=== PATIENT | male | born 1960 | race Caucasian/White ===

== ENCOUNTER 2024-05-09 20:31 | Emergency (ER) | payer BC, SELFPAY ==
--- NOTE | ~2024-05-09 | CT_ITS ---
CLINICAL HISTORY: HTN, headache CT head without contrast Comparison: None available Findings: No acute intracranial hemorrhage. No midline shift or hydrocephalus. Posterior fossa arachnoid cyst measures 5 mm. Left basal ganglia region perivascular space versus small old lacunar infarction. No arterial territorial infarction by CT. Partially empty sella. Vascular calcifications noted, including imaged carotid siphons. 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 No acute skull fracture. Mild mucosal thickening of the imaged paranasal sinuses. Imaged mastoid air cells are well aerated. No skull fracture. IMPRESSION: 1. No acute intracranial abnormality by CT. This document has been electronically signed by: Dale Atkins MD on 05/09/2024 21:39:50
[2024-05-09 20:39] VITALS: BP 189/86; PULSE 79; RESP 20; TEMP 37.2; O2SAT 96; BMI 22.8
--- NOTE | 2024-05-09 20:39 | ED_ITS ---
HPI - General Adult General Chief complaint: General Medical Stated complaint: hypertension Time Seen by Provider: 05/10/24 00:46 Source: patient Mode of arrival: ambulatory Limitations: language barrier (Bulgarian speaking clinical geneticist utilized) History of Present Illness ED Provider: Sofya Lopez NP HPI narrative: Patient is a 64-year-old male who presents to the emergency department for evaluation. He states that he routinely checks his blood pressure with an automated upper arm blood pressure cuff. He decided to check it today and was found to have elevated blood pressure reading of 196/97, this afternoon at approximately 14:00 he decided to take a 2nd dose of his lisinopril 10 mg (for a total of 20 mg today). When asked, he was asymptomatic at this time. Initial triage states that he endorsed having pain in his neck as well as a headache; however on further clarification with clinical geneticist he states that 3 days ago he experienced left lateral neck pain when he woke up in the morning resolved throughout the day, and that intermittently he might experience an occasional headache diffusely any neurological symptoms. He denies having neck pain nor headache today. He states he has been taking lisinopril 10 mg daily for about 1.5 years. He has an appointment; routine follow-up with primary care doctor in the next couple of months. He denies dizziness, lightheadedness, vision changes neck pain, neck stiffness, chest pain, shortness of breath, numbness or tingling in the extremities Related Data Allergies Allergy/AdvReac Type Severity Reaction Status Date / Time No Known Allergies Allergy Verified 05/09/24 20:41 Review of Systems 2 Review of Systems: Yes all other systems are reviewed and are negative PMFSH Past Medical History Attestation statement: The following information was validated with the patient. Source: old records reviewed Social History Social History Alcohol intake: current Alcohol intake frequency: 0-2 drinks per day Alcohol type: beer Smoked in Last 30 Days: No Use of substances other than those prescribed or required for medical reasons: No Advance Directives: No Advance Directives Information Provided: Yes Physical Exam ED Vital Signs: Vital Signs - 24 hr 05/09/24 20:39 05/09/24 23:17 05/10/24 02:40 Temperature 98.9 F 98.3 F 98.3 F Pulse Rate 79 84 67 Respiratory Rate 20 16 16 Blood Pressure 189/86 H 158/85 H 120/73 Pulse Oximetry 96 96 96 Oxygen Delivery Method Room Air Room Air Room Air 05/10/24 02:55 Temperature 98.3 F Pulse Rate 67 Respiratory Rate 16 Blood Pressure 120/73 Pulse Oximetry 96 Oxygen Delivery Method Room Air BMI result Body Mass Index 22.8 Appearance: Alert.?Oriented to person, place and time. No acute distress.?Normal affect. Eyes: Pupils equal, round and reactive to light.? ENT: Pharynx normal.?? Neck: Normal inspection.? Neck supple.?? CVS: Heart sounds normal. Normal heart rate and rhythm.? Pulses normal.?? Respiratory: No respiratory distress.? Lung sounds clear to auscultation bilaterally?? Abdomen: Soft and non-tender. Normoactive bowel sounds. ?? Skin: Skin warm and dry.? Normal skin color.? Extremities: No lower extremity edema.? No calf ttp? Neuro: Moves all extremities spontaneously. Sensation intact bilaterally. No focal neuro deficits. Ambulates with normal steady gait. Course Course Course Narrative: This is an RME: Additional HPI, ROS, PE not included below will be deferred to primary provider. RME assessment and note performed by: Shobha Turner PA-C This is a 76-memw-eqc-Bulgarian speaking male, with a hx of HTN on lisinopril, lyme disease 5 years ago, who presents to the ER with complaints of elevated BP. Reports that he has had neck pain and took his BP and noticed that it was elevated. He took two doses of his bp medication and reports that his blood pressure remains to be elevated. Reports some headache. No changes in vision, CP or SOB.Not on AC. He is A&Ox4, no focal deficits on exam. Plan: Labs, CT head, UA, EKG, further ER eval needed Medical Decision Making Medical Decision Making MDM Narrative: Patient is a 64-year-old male who presents emergency department for evaluation of asymptomatic hypertension as per HPI. On arrival to emergency department had blood pressure of 189/86. At the time of my evaluation blood pressure was 148/73, remaining asymptomatic. He had a workup obtained prior to my assumption of care revealing a CBC without leukocytosis anemia or thrombocytopenia. Electrolyte derangement. No MALLORY. LFTs unremarkable. High sensitive troponin is negative, EKG revealing a normal sinus rhythm with ventricular rate of 77, QTC 409, no acute ischemic changes. A CT of the head was obtained as well and he is without evidence of acute intracranial pathology no ICH.. Urinalysis is unremarkable, no evidence of proteinuria. Viral serologies are negative. Discussed monitoring blood pressure levels at home, appropriate time of checking heaving a log to review with his primary care doctor. Discussed strict return precautions. All questions answered. Differential Diagnosis Differential Diagnoses: The differential diagnosis associated with the presentation includes (See narrative above) Admission/Observation Consideration of admission/observation: Escalation of care including admission/observation considered Lab Data MDM Lab Attestation statement: I reviewed the patient's lab results. (See narrative above) 05/09/24 21:14 05/09/24 21:14 Labs: Lab Results 05/09/24 05/09/24 Range/Units 21:14 21:44 WBC 7.4 (4.8-10.8) X10*3/uL RBC 4.91 (4.60-5.80) X10*6/uL Hgb 15.0 (14.0-18.0) g/dl Hct 43.3 (42.0-52.0) % MCV 88.2 (80.0-98.0) fL MCH 30.5 (27.0-33.0) pg MCHC 34.6 (31.0-36.0) g/dl RDW 12.8 (11.0-16.0) % Plt Count 236 (160-400) X10*3/uL MPV 10.9 (9.4-12.4) fL Immature Gran % (Auto) 0.1 (0.0-0.4) % Neut % (Auto) 67.6 (45-73) % Lymph % (Auto) 22.6 (20-40) % [place] % (Auto) 8.9 (2-11) % Eos % (Auto) 0.4 (0-4) % Baso % (Auto) 0.4 (0-2) % Lymph # (Auto) 1.7 (1.2-4.9) X10*3/uL [place] # (Auto) 0.7 (0.1-1.2) X10*3/uL Eos # (Auto) 0.0 (0.0-0.4) X10*3/uL Baso # (Auto) 0.0 (0.0-0.2) X10*3/uL Abs Immat Gran (auto) 0.01 (0.00-0.03) X10*3/uL Absolute Neuts (auto) 5.0 (2.0-8.3) x10*3/uL Absolute Nucleated RBC 0.000 (0.0-0.012) X10*3/uL Nucleated RBC % (auto) 0.0 (0.0-0.2) /100WBC Sodium 139 (135-145) mmol/L Potassium 4.7 (3.3-5.1) mmol/L Chloride 106 (96-108) mmol/L Carbon Dioxide 25 (22-29) mmol/L Anion Gap 13 (12-20) BUN 19 H (9-16) mg/dL Creatinine 0.79 (0.5-1.4) mg/dL Estim Creat Clear Calc 94.7 Estimated GFR > 60 Random Glucose 112 (60-115) mg/dL Calcium 9.7 (8.4-10.2) mg/dL Total Bilirubin 0.3 (0.0-1.0) mg/dL Direct Bilirubin 0.1 (0.0-0.5) mg/dL AST 27 (5-37) U/L ALT 25 (0-40) U/L Alkaline Phosphatase 56 (39-117) U/L Troponin I High Sens 3.4 (<3.5-35.0) ng/L Total Protein 7.6 (6.5-8.0) g/dL Albumin 4.5 (3.5-5.0) g/dL Urine Color Yellow Urine Appearance Clear Urine pH 5.5 (5.0-9.0) Ur Specific [place] <= 1.005 (1.005-1.025) Urine Protein Negative (Neg-Trace) mg/dL Urine Glucose (UA) Negative (Negative) mg/dL Urine Ketones Negative (Negative) mg/dL Urine Blood Negative (Negative) Urine Nitrite Negative (Negative) Ur Leukocyte Esterase Negative (Negative) Influenza Type A (PCR) NEGATIVE (Negative) Influenza Type B (PCR) NEGATIVE (Negative) RSV RNA Qual (PCR) NEGATIVE (Negative) SARS-CoV-2 RNA (RT-PCR) NEGATIVE (Negative) Radiology Impression Discussion of test interpretation with radiology: I have reviewed the radiologist's reading. Radiologist Impression: CT head without contrast Comparison: None available Findings: No acute intracranial hemorrhage. No midline shift or hydrocephalus. Posterior fossa arachnoid cyst measures 5 mm. Left basal ganglia region perivascular space versus small old lacunar infarction. No arterial territorial infarction by CT. Partially empty sella. Vascular calcifications noted, including imaged carotid siphons. soft tissue swelling with question scalp defect and/or procedure change manager the left frontal convexity. No acute skull fracture. Mild mucosal thickening of the imaged paranasal sinuses. Imaged mastoid air cells are well aerated. No skull fracture. IMPRESSION: 1. No acute intracranial abnormality by CT. External Record Review External record reviewed: Outpatient record Chronic Conditions Patient?s care impacted by: Hypertension Discharge Plan Discharge Clinical Impression: Hypertension Patient Disposition: Home, Self-Care Instructions: Hypertension (ED) Additional Instructions: Discussed, please keep a log of your blood pressure readings over the next 2 weeks. Check them 3 times weekly at least 2 hours after taking your blood pressure medication, while at rest sitting in a legs on crossed position. Please write these down to keep a record of them. If you continue to have elevated blood pressure readings you should discuss this with your primary care doctor as they may consider changes to your blood pressure medication regimen. You should seek re-evaluation if you began experiencing elevated high blood pressure readings especially in addition to headache, dizziness, lightheadedness, vision changes, chest pain, shortness of breath, numbness or tingling of the extremities. Referrals: Physician,Unknown J [Primary Care Provider] - Interventions: ED Discharge Assessment Last Done: 05/10/24 02:55 Discharge Date/Time: 05/10/24 02:40 Print Language: Bulgarian
--- NOTE | 2024-05-09 20:45 | ECG_ITS ---
Test Reason : HIGH BP Blood Pressure : */* mmHG Vent. Rate : 77 BPM Atrial Rate : 77 BPM P-R Int : 130 ms QRS Dur : 92 ms QT Int : 362 ms P-R-T Axes : 61 4 50 degrees QTcB Int : 409 ms Normal sinus rhythm with sinus arrhythmia Normal ECG No previous ECGs available Referred By: Shobha Chen Electronically Signed By: DAINA DEL TORO
[2024-05-09 21:19] LABS: MANUAL DIFF FLAG NO
[2024-05-09 21:20] LABS: Basophils Percent Auto 0.4 % (0-2); Eosinophils Percent Auto 0.4 % (0-4); Hematocrit 43.3 % (42.0-52.0); Imm Gran Abs Auto 0.01 X10*3/uL (0.00-0.03); Imm Gran Pct Auto 0.1 % (0.0-0.4); Lymphocytes Absolute Auto 1.7 X10*3/uL (1.2-4.9); Lymphocytes Percent Auto 22.6 % (20-40); Mean Corpuscular HGB Conc 34.6 g/dl (31.0-36.0); Mean Corpuscular Hemoglobin 30.5 pg (27.0-33.0); Mean Corpuscular Volume 88.2 fL (80.0-98.0); Mean Platelet Volume 10.9 fL (9.4-12.4); Monocytes Absolute Auto 0.7 X10*3/uL (0.1-1.2); Monocytes Percent Auto 8.9 % (2-11); Neutrophils Percent Auto 67.6 % (45-73); Platelet Count 236 X10*3/uL (160-400); Red Blood Count 4.91 X10*6/uL (4.60-5.80); Red Cell Distribution Width 12.8 % (11.0-16.0); White Blood Count 7.4 X10*3/uL (4.8-10.8)
[2024-05-09 21:36] LABS: Alanine Aminotransferase 25 U/L (0-40); Albumin Level 4.5 g/dL (3.5-5.0); Alkaline Phosphatase 56 U/L (39-117); Anion Gap 13 (12-20); Aspartate Amino Transferase 27 U/L (5-37); Bilirubin Direct 0.1 mg/dL (0.0-0.5); Bilirubin Total 0.3 mg/dL (0.0-1.0); Blood Urea Nitrogen 19 mg/dL (9-16); Calcium 9.7 mg/dL (8.4-10.2); Carbon Dioxide 25 mmol/L (22-29); Chloride 106 mmol/L (96-108); Creatinine Clr Calc Pharmacy 94.7; Estimated Glomerular Filt Rate > 60; Glucose Random 112 mg/dL (60-115); Potassium 4.7 mmol/L (3.3-5.1); Sodium 139 mmol/L (135-145); Total Protein 7.6 g/dL (6.5-8.0)
[2024-05-09 21:42] LABS: Troponin-I High Sensitivity 3.4 ng/L (<3.5-35.0)
[2024-05-09 21:53] LABS: Appearance Urine Clear; Color Urine Yellow; Glucose Urine UA Negative (Negative); Leukocyte Esterase Urine Negative (Negative); Nitrite Urine Negative (Negative); PH 5.5 (5.0-9.0); Specific Gravity - Urine <= 1.005 (1.005-1.025); Urine Blood Negative (Negative); Urine Ketones Negative (Negative); Urine Protein Negative (Neg-Trace)
[2024-05-09 21:59] LABS: Influenza A PCR NEGATIVE (Negative); Influenza B PCR NEGATIVE (Negative); Resp Syncy Virus RNA Qual PCR NEGATIVE (Negative); SARS COV2 PCR INHOUSE NEGATIVE (Negative)
[2024-05-09 23:17] VITALS: BP 158/85; PULSE 84; RESP 16; TEMP 36.8; O2SAT 96
--- OUTSIDE RECORDS SUMMARY | 2024-05-10 00:51 | XMS_ITS | Data Portability ---
Author Organization [facility], , [facility] Address [address] [place] [address] Care Team Providers Care Barman Name Role Phone MYA KEMP Primary Care Provider Assessment Encounter Date Assessment Date Assessment LastModified by Organization Details LastModified Time 03/17/2024 03/17/2024 After a discussion of treatment options, which included consideration of best practices and patient preferences, the following treatment plan and objectives were adopted: My total time spent today documenting and providing coordinated care for this patient is _40__. I have reviewed, collected, and updated relevant history and performed a physical exam. I have coordinated care with: the patient's family. I have reviewed: labs, x-rays, specialty notes, and discharge summaries as appropriate. . Below is my assessment and plan for this patient? s care today. [email or web address] Not available 03/17/2024 11:54:44 Plan of Treatment Reminders Order Date Submit Date Provider Last Modified By Organization Details Last Modified Time Details Appointments Wellness Visit 30 2024 04:00P Marian KEMP DNP Not available Not available Not available Lab urinalys is, dipstick , auto [facility]24 [facility] [address] [place] [address], [address], 03/20/2024 13:37:48 BMP, serum or plasma 2023 024 [facility], [address] [place] [address], [address], 10/27/2023 11:41:56 PSA, serum or plasma 2023 024 [facility], [address] [place] [address], [address], 07/05/2023 11:30:12 CBC 2023 024 [facility], [address] [place] [address], [address], 07/05/2023 10:31:25 CMP, serum or plasma 2023 024 [facility], [address] [place] [address], [id number], 07/05/2023 14:14:39 lipid panel, serum 2023 024 [facility], [address] [place] [address], [address], 07/05/2023 12:57:31 HbA1c (hemoglo bin A1c), blood 2023 024 [facility], [address] [place] [address], [address], 07/05/2023 12:12:22 Referral None recorded . Procedures None recorded . Surgeries None recorded . Imaging US, kidney - intermit tent R flank pain x 5 days 2024 025 [facility]), [address], [place], [address], 03/20/2024 08:19:24 Medication Orders tramadol 50 mg tablet 2024 025 WELCH Fatemeh [id number] ([facility]), [address] [place] [address], [id number], 03/17/2024 10:28:24 lisinopr il 10 mg tablet 2023 024 WELCH Fatemeh [address] ([facility]), [address] [place] [address], [id number], 08/31/2023 14:47:46 albutero l sulfate HFA 90 mcg/actu ation aerosol inhaler 2023 024 KETTY Weldon [id number] ([facility]), [address], [place], [id number], 09/27/2023 14:48:01 Patient TargetsNo targets recorded. Patient Instructions Encounter Date Encounter Id Patient Instructions Last Modified By Organization Details Last Modified Time 03/10/2023 [id number] After a discussi on of treatment options, which included consideration of best practices, patient preferences, and the patient? s individual lifestyle and treatment goals, as well as consideration and attempted mitigation of any barriers to meeting the patient? s goals, the? ? ?above treatment plan and objectives were adopted: [email or web address] Not available 03/10/2023 08:40:27 Reason for Referral None Reported. Results Created Date Observation Date Name Description Value Unit Range Abnormal Flag Note LastModifiedBy Organization Detail LastModifiedTime 07/05/19 24 07/05/2023 CBC WBC 4.00 K/? ? ?L 4.23-9 .07 low Not Available [address], [address], 07/05/2023 10:31:25 07/05/19 24 07/05/2023 CBC RBC 4.72 M/? ? ?L 4.63-6 .08 Not Available [address], [address], 07/05/2023 10:31:25 07/05/19 24 07/05/2023 CBC HGB 14.4 g/dL 13.7-1 7.5 Not Available [address], [address], 07/05/2023 10:31:25 07/05/19 24 07/05/2023 CBC HCT 45.1 % 40.1-5 1.0 Not Available [address], [address], 07/05/2023 10:31:25 07/05/19 24 07/05/2023 CBC MCV 95.6 fL 79.0-9 2.2 high Not Available [address], [address], 07/05/2023 10:31:25 07/05/19 24 07/05/2023 CBC MCH 30.5 pg 25.7-3 2.2 Not Available [address], [address], 07/05/2023 10:31:25 07/05/19 24 07/05/2023 CBC MCHC 31.9 g/dL 32.3-3 6.5 low Not Available [address], [address], 07/05/2023 10:31:25 07/05/19 24 07/05/2023 CBC plt 224 K/? ? ?L 163-33 7 Not Available [address], [address], 07/05/2023 10:31:25 07/05/19 24 07/05/2023 CBC MPV 11.3 fL 9.4-12 .4 Not Available [address], [address], 07/05/2023 10:31:25 07/05/19 24 07/05/2023 CBC neut% 43.6 % 34.0-6 7.9 Not Available [address], [address], 07/05/2023 10:31:25 07/05/19 24 07/05/2023 CBC neut# 1.75 1.78-5 .38 low Not Available [address], [address], 07/05/2023 10:31:25 07/05/19 24 07/05/2023 CBC lymph % 38.3 % 21.8-5 3.1 Not Available [address], [address], 07/05/2023 10:31:25 07/05/19 24 07/05/2023 CBC lymph # 1.53 K/? ? ?L 1.32-3 .57 Not Available [address], [address], 07/05/2023 10:31:25 07/05/19 24 07/05/2023 CBC mono% 15.0 % 5.3-12 .2 high Not Available [address], [address], 07/05/2023 10:31:25 07/05/19 24 07/05/2023 CBC mono# 0.60 0.30-0 .82 Not Available [address], [address], 07/05/2023 10:31:25 07/05/19 24 07/05/2023 CBC eo% 2.0 % 0.8-7. 0 Not Available [address], [address], 07/05/2023 10:31:25 07/05/19 24 07/05/2023 CBC eo# 0.08 0.04-0 .54 Not Available [address], [address], 07/05/2023 10:31:25 07/05/19 24 07/05/2023 CBC baso% 0.8 % 0.2-1. 2 Not Available [address], [address], 07/05/2023 10:31:25 07/05/19 24 07/05/2023 CBC baso# 0.03 0.00-0 .08 Not Available [address], [address], 07/05/2023 10:31:25 07/05/19 24 07/05/2023 CBC RDW-CV 13.0 % 11.6-1 4.4 Not Available [address], [address], 07/05/2023 10:31:25 07/05/19 24 07/05/2023 CBC Ig% 0.300 % 0.000- 1.500 Ig % >0.5 Indic ates possi ble Left Shift Not Available [address], [address], 07/05/2023 10:31:25 07/05/19 24 07/05/2023 CBC Ig# 0.010 0.000- 0.093 Not Available [address], [address], 07/05/2023 10:31:25 07/05/19 24 07/05/2023 CBC NRBC% 0.0 % 0.0-0. 2 Not Available [address], [address], 07/05/2023 10:31:25 07/05/19 24 07/05/2023 CBC NRBC# 0.000 0.000- 0.012 Not Available [address], [address], 07/05/2023 10:31:25 07/05/19 24 07/05/2023 PSA PSA 0.71 NG/mL 0.00-4 .00 Not Available [address], [address], 07/05/2023 11:30:12 07/05/1907/05/2023 HGB A1C hemoglobin A1C 5.7 % 4.8-6. 0 Goal: <7% in Patie nts with Diabe reno An A1c betwe en 5.7-6 .4% is ident ified as pre-d iabet es and sugge sts risk for progr essio n to diabe reno Two a1c value s of 6.5% or highe r is consi stent with a diagn osis of diabe reno but may need furth er confi rmati on Not Available [address], [address], 07/05/2023 12:12:21 05/28/07/05/2023 HGB A1C estimated average glucose 116.9 mg/dL Not Available [address], [address], 07/05/2023 12:12:21 07/05/1907/05/2023 LIPID PANEL cholesterol 161 mg/dL <200 mg/dl Mateo able 200-2 39 mg/dl Borde rline High >240 mg/dl High Not Available [address], [address], 07/05/2023 12:57:31 07/05/19 24 07/05/2023 LIPID PANEL triglyceride s 69 mg/dL <150 mg/dL Mary Beth l 150-1 99 mg/dL Borde rline High 200-4 99 mg/dL High >500 mg/dL Very High Not Available [address], [address], 07/05/2023 12:57:31 07/05/19 24 07/05/2023 LIPID PANEL direct HDL 54 mg/dL <40 mg/dl - Major Risk for CHD >60 mg/dl - Negat shadia Risk for CHD Not Available [address], [address], 07/05/2023 12:57:31 07/05/19 24 07/05/2023 LDL - CALCU LATED LDL - calculated 93.2 RISK CATEG ORY LDL GOAL _ CHD or CHD Risk Equiv alent s <100 mg/dl (10-y ear risk >20%) 2+ Risk Facto rs <130 mg/dl (10-y ear risk <= 20%) 0-1 Risk Facto r? <160 mg/dl ? Almos t all peopl e with 0-1 risk facto r have a 10 year risk <10%, thus 10 year risk asses ment in peopl e with 0-1 risk facto r is not neces greyson. Not Available [address], [address], 07/05/2023 12:57:32 07/05/19 24 07/05/2023 COMP. METAB OLIC PANEL glucose 112 mg/dL 70-100 high Not Available [address], [address], 07/05/2023 14:14:39 07/05/19 24 07/05/2023 COMP. METAB OLIC PANEL BUN 17 mg/dL 7-18 Not Available [address], [address], 07/05/2023 14:14:39 07/05/19 24 07/05/2023 COMP. METAB OLIC PANEL creatinine 0.8 mg/dL 0.8-1. 3 Not Available [address], [address], 07/05/2023 14:14:39 07/05/19 24 07/05/2023 COMP. METAB OLIC PANEL B/C 21.3 ratio Not Available [address], [address], 07/05/2023 14:14:39 07/05/19 24 07/05/2023 COMP. METAB OLIC PANEL GFR >=60ML /MIN mL/mi n normal >=60m L/min - Mary Beth l or midly reduc ed <60mL /min- Decre ased kidne y funct ion <15mL /min - Kidne y failu re [facility] calcu lates estim ated Glome rular Filtr ation Rate (eGFR ) using the Chron ic Kidne y Disea se Epide miolo gy Colla borat ion (CKD- EPI) Equat ion (Oscar chambers et. al 2020) as recom huang d by the Natio nal Kidne y Found ation . eGFR is based on age, serum creat inine , and sex. CKD-E PI does not calcu late eGFR by race, does not apply to child karthikeyan (age <18 years ), and shoul d not be used in pregn kim. Not Available [address], [address], 07/05/2023 14:14:39 07/05/19 24 07/05/2023 COMP. METAB OLIC PANEL sodium 140 mmol/ L 136-14 5 Not Available [address], [address], 07/05/2023 14:14:39 07/05/19 24 07/05/2023 COMP. METAB OLIC PANEL potassium 5.3 mmol/ L 3.5-5. 1 high Not Available [address], [address], 07/05/2023 14:14:39 07/05/19 24 07/05/2023 COMP. METAB OLIC PANEL chloride 104 mmol/ L 96-107 Not Available [address], [address], 07/05/2023 14:14:39 07/05/19 24 07/05/2023 COMP. METAB OLIC PANEL anion gap 8.3 5.0-15 .0 Not Available [address], [address], 07/05/2023 14:14:39 07/05/19 24 07/05/2023 COMP. METAB OLIC PANEL CO2 28 mmol/ L 21-32 Not Available [address], [address], 07/05/2023 14:14:39 07/05/19 24 07/05/2023 COMP. METAB OLIC PANEL calcium 8.8 mg/dL 8.5-10 .3 Not Available [address], [address], 07/05/2023 14:14:39 07/05/19 24 07/05/2023 COMP. METAB OLIC PANEL total protein 6.7 g/dL 6.4-8. 2 Not Available [address], [address], 07/05/2023 14:14:39 07/05/19 24 07/05/2023 COMP. METAB OLIC PANEL albumin 3.7 g/dL 3.4-5. 0 Not Available [address], [address], 07/05/2023 14:14:39 07/05/19 24 07/05/2023 COMP. METAB OLIC PANEL globulin 3.0 g/dL Not Available [address], [address], 07/05/2023 14:14:39 07/05/19 24 07/05/2023 COMP. METAB OLIC PANEL A/G 1.2 ratio 0.8-2. 0 Not Available [address], [address], 07/05/2023 14:14:39 07/05/19 24 07/05/2023 COMP. METAB OLIC PANEL total bilirubin 0.30 mg/dL 0.00-1 .00 Not Available [address], [address], 07/05/2023 14:14:39 07/05/19 24 07/05/2023 COMP. METAB OLIC PANEL AST 18 U/L 0-37 Not Available [address], [address], 07/05/2023 14:14:39 07/05/19 24 07/05/2023 COMP. METAB OLIC PANEL ALT 35 U/L 6-63 Not Available [address], [address], 07/05/2023 14:14:39 07/05/19 24 07/05/2023 COMP. METAB OLIC PANEL alk. phos. 54 U/L 50-136 Not Available [address], [address], 07/05/2023 14:14:39 10/27/19 24 10/27/2023 BASIC METAB OLIC PANEL glucose 100 mg/dL 70-100 Not Available [address], [address], 10/27/2023 11:41:56 10/27/19 24 10/27/2023 BASIC METAB OLIC PANEL BUN 18 mg/dL 7-18 Not Available [address], [address], 10/27/2023 11:41:56 10/27/19 24 10/27/2023 BASIC METAB OLIC PANEL creatinine 0.9 mg/dL 0.8-1. 3 Not Available [address], [address], 10/27/2023 11:41:56 10/27/19 24 10/27/2023 BASIC METAB OLIC PANEL B/C 20.0 ratio Not Available [address], [address], 10/27/2023 11:41:56 10/27/19 24 10/27/2023 BASIC METAB OLIC PANEL GFR >=60ML /MIN mL/mi n normal >=60m L/min - Mary Beth l or midly reduc ed <60mL /min- Decre ased kidne y funct ion <15mL /min - Kidne y failu re [facility] calcu lates estim ated Glome rular Filtr ation Rate (eGFR ) using the Chron ic Kidne y Disea se Epide miolo gy Colla borat ion (CKD- EPI) Equat ion (Oscar r et. al 2020) as recom huang d by the Natio nal Kidne y Found ation . eGFR is based on age, serum creat inine , and sex. CKD-E PI does not calcu late eGFR by race, does not apply to child karthikeyan (age <18 years ), and shoul d not be used in pregn kim. Not Available [address], [address], 10/27/2023 11:41:56 10/27/19 24 10/27/2023 BASIC METAB OLIC PANEL sodium 139 mmol/ L 136-14 5 Not Available [address], [address], 10/27/2023 11:41:56 10/27/19 24 10/27/2023 BASIC METAB OLIC PANEL potassium 4.4 mmol/ L 3.5-5. 1 Not Available [address], [address], 10/27/2023 11:41:56 10/27/19 24 10/27/2023 BASIC METAB OLIC PANEL chloride 101 mmol/ L 96-107 Not Available [address], [address], 10/27/2023 11:41:56 10/27/19 24 10/27/2023 BASIC METAB OLIC PANEL anion gap 10.1 5.0-15 .0 Not Available [address], [address], 10/27/2023 11:41:56 10/27/19 24 10/27/2023 BASIC METAB OLIC PANEL CO2 28 mmol/ L 21-32 Not Available [address], [address], 10/27/2023 11:41:56 10/27/19 24 10/27/2023 BASIC METAB OLIC PANEL calcium 8.8 mg/dL 8.5-10 .3 Not Available [address], [address], 10/27/2023 11:41:56 03/17/19 25 03/19/2024 URINA LYSIS , COMPL ETE color YELLOW yellow normal Not Available [facility] [address], [address], 03/19/2024 10:27:21 03/17/19 25 03/19/2024 URINA LYSIS , COMPL ETE appearance CLEAR clear normal Not Available [facility] [address], [address], 03/19/2024 10:27:21 03/17/19 25 03/19/2024 URINA LYSIS , COMPL ETE specific gravity 1.020 1.001- 1.035 normal Not Available [facility] [address], [place], [address], 03/19/2024 10:27:21 03/17/19 25 03/19/2024 URINA LYSIS , COMPL ETE pH 5.5 5.0-8. 0 normal Not Available [facility] [address], [place], [address], 03/19/2024 10:27:21 03/17/19 25 03/19/2024 URINA LYSIS , COMPL ETE glucose NEGATI VE negati ve normal Not Available [facility] [address], [place], [address], 03/19/2024 10:27:21 03/17/19 25 03/19/2024 URINA LYSIS , COMPL ETE bilirubin NEGATI VE negati ve normal Not Available [facility] [address], [place], [address], 03/19/2024 10:27:21 03/17/19 25 03/19/2024 URINA LYSIS , COMPL ETE ketones NEGATI VE negati ve normal Not Available [facility] [address], [place], [address], 03/19/2024 10:27:21 03/17/19 25 03/19/2024 URINA LYSIS , COMPL ETE occult blood NEGATI VE negati ve normal Not Available [facility] [address], [place], [address], 03/19/2024 10:27:21 03/17/19 25 03/19/2024 URINA LYSIS , COMPL ETE protein NEGATI VE negati ve normal Not Available [facility] [address], [place], [address], 03/19/2024 10:27:21 03/17/19 25 03/19/2024 URINA LYSIS , COMPL ETE nitrite NEGATI VE negati ve normal Not Available [facility] [address], [place], [address], 03/19/2024 10:27:21 03/17/19 25 03/19/2024 URINA LYSIS , COMPL ETE leukocyte esterase NEGATI VE negati ve normal Not Available [facility] [address], [place], [address], 03/19/2024 10:27:21 03/17/19 25 03/19/2024 URINA LYSIS , COMPL ETE WBC NONE SEEN /hpf < or = 5 normal Not Available [facility] [address], [place], [address], 03/19/2024 10:27:21 03/17/19 25 03/19/2024 URINA LYSIS , COMPL ETE RBC NONE SEEN /hpf < or = 2 normal Not Available [facility] [address], [place], [address], 03/19/2024 10:27:21 03/17/19 25 03/19/2024 URINA LYSIS , COMPL ETE squamous epithelial cells NONE SEEN /hpf < or = 5 normal Not Available [facility] [address], [place], [address], 03/19/2024 10:27:21 03/17/19 25 03/19/2024 URINA LYSIS , COMPL ETE bacteria NONE SEEN /hpf none seen normal Not Available [facility] [address] [place], [address], 03/19/2024 10:27:21 03/17/19 25 03/19/2024 URINA LYSIS , COMPL ETE calcium oxalate crystals FEW /hpf none or few normal Not Available [facility] [address], [place], [address], 03/19/2024 10:27:21 03/17/19 25 03/19/2024 URINA LYSIS , COMPL ETE uric acid crystals FEW /hpf none or few normal Not Available [facility] [address], [place], [address], 03/19/2024 10:27:21 03/17/19 25 03/19/2024 URINA LYSIS , COMPL ETE hyaline cast NONE SEEN /lpf none seen normal Not Available [facility] [address], [place], [address], 03/19/2024 10:27:21 03/17/19 25 03/19/2024 URINA LYSIS , COMPL ETE Unknown Analyte SEE BELOW This urine was karina zed for the prese nce of WBC, RBC, bacte gaston, casts , and other forme d eleme nts. Only those eleme nts seen were repor vicente. Not Available [facility] [address], [place], [address], 03/19/2024 10:27:21 03/20/19 25 03/19/2024 US, kidne y CLINIC AL HISTOR Y: Right flank pain. Transi ent left flank pain. TECHNI QUE: 2D sonogr aphy of the kidney s. COMPAR BENNETT: None. FINDIN GS: Right kidney 4.6 x 10.1 cm The right kidney is normal in echote xture. There is no solid mass, stone, or hydron ephros is. Left kidney 5.6 x 10.6 cm The left kidney is normal in echote xture. There is no solid mass, stone, or hydron ephros is. Ureter al jets are visual ized bilate rally. IMPRES ROSARIO: Normal examin ation. Readin g Physic howard: Loyda Watts ms [email or web address] [facility] [address] , [place], [address], 03/27/2024 15:48:49 Result Notes None recorded. Problems Name Problem SNOMED Code Status Onset Date Resolution Date Notes Provider Name and Address Organization Details Recorded Time Hyperlipidemia 40451091 Active 2023 Joceline Lizarraga PA-C [address] [place] [address], [phone], [facility] 4 14:26:06 Elevated blood-pressure reading without diagnosis of hypertension 884764034 Active 2023 Joceline Lizarraga PA-C [address] [place] [address] [place], [address], [facility] 4 14:26:07 Essential hypertension 30609532 Active 2023 Joceline Lizarraga PA-C [address] [place] [address] [place], [address], [facility] 4 14:56:18 Problem Notes None recorded. Procedures Surgical History Date Name Laterality Status Provider Name and Address Organization Details Recorded Time 2 Jonathan - Colonoscopy completed Patricio Castillo MD [address] [place] [address], [phone], [facility] 09/03/2021 11:04:04 2 Colonoscopy completed Alana Ochoa [facility] 11/04/2021 12:54:42 0 prevention-card iovascular risk reduction counseling completed Crystal Herrera MA [facility] 03/28/2019 14:12:58 0 prevention-otoniel al alcohol misuse screening completed Crystal Herrera MA [facility] 03/28/2019 14:12:58 6 Jonathan - Colonoscopy completed Patricio Castillo MD [address] [place] [address], [phone], [facility] 11/17/2015 07:46:30 Nerve surgery completed CARI Crespo [address] [facility], [place], [address], [facility] 08/27/2015 20:48:52 Imaging Results Imaging Date Name Status LastModified by Organiz ation Details LastModified Time 03/19/2024 US, kidney completed [email or web address] [facility] [address], [place], [address], 03/27/2024 15:48:49 Procedure Notes None recorded. Medical Equipment None Reported. Allergies No known drug allergies Medications Name Sig Start Date Stop Date Status Note LastModified by Organization Details LastModified Time ibuprofen 800 mg tablet Take 1 tablet 3 times a day by oral route with meals. 11/30 completed Not Available Not Available Not Available tramadol 50 mg tablet TAKE 1 TABLET BY MOUTH EVERY 6 HOURS NEEDED FOR PAIN active Not Available Not Available No t Available lisinopri l 10 mg tablet TAKE 1 TABLET BY MOUTH EVERY DAY 2024 active Not Available Not Available Not Avai lable naproxen 500 mg tablet,de layed release TAKE 1 TABLET BY MOUTH TWICE A DAY WITH MEALS 03/28 completed Not Available Not Available Not Available diclofena c sodium 75 mg tablet,de layed release TK 1 T PO BID 11/30 completed Not Available Not Available Not Available albuterol sulfate HFA 90 mcg/actua tion aerosol inhaler INHALE 2 PUFFS BY MOUTH EVERY 4 HOURS NEEDED 09/26 completed stated not using anymore 08/31/23 Not Available Not Available Not Available doxycycli ne hyclate 100 mg tablet Take 1 tablet twice a day by oral route for 21 days. 04/21 completed Not Available Not Available Not Available peg 3350-elec trolytes 236 gram-22.7 4 gram-6.74 gram-5.86 gram solution MIX AND DRINK DIRECTED 04/12 completed Not Available Not Available Not Available ProChambe r USE WITH INHALER DIRECTED 09/26 completed stated not using anymore 08/31/23 ao Not Available Not Available Not Available Vitals Date Recorded Body height Body mass index (BMI) Body weight Oxygen saturation Oxygen saturation in Arterial blood by Pulse oximetry Heart rate Systolic blood pressure Diastolic blood pressure Provider Name and Address Organization Details Last Updated DateTime 4 175.26 cm 23.7 kg/m2 74344.8 8 g 95 % 95 % 66 /min 124 mm[Hg] 72 mm[Hg] Jose Antonio Bonilla MA [facility] 4 08:13:50 Date Recorded Body height Body mass index (BMI) Body weight Heart rate Oxygen saturation Oxygen saturation in Arterial blood by Pulse oximetry Systolic blood pressure Diastolic blood pressure Systolic blood pressure Diastolic blood pressure Provider Name and Address Organization Details Last Updated DateTime 4 175.26 cm 23.6 kg/m2 80587.7 8 g 65 /min 95 % 95 % 162 mm[Hg] 80 mm[Hg] 162 mm[Hg] 78 mm[Hg] Mara Amanda [facility] 4 14:03:04 Date Recorded Body height Body mass index (BMI) Body weight Oxygen saturation Oxygen saturation in Arterial blood by Pulse oximetry Heart rate Systolic blood pressure Diastolic blood pressure Provider Name and Address Organization Details Last Updated DateTime 4 175.26 cm 23.2 kg/m2 55346.7 g 95 % 95 % 65 /min 166 mm[Hg] 88 mm[Hg] Jacquelin Bee [facility] 4 14:36:09 Date Recorded Body height Body mass index (BMI) Body weight Oxygen saturation Oxygen saturation in Arterial blood by Pulse oximetry Heart rate Systolic blood pressure Diastolic blood pressure Systolic blood pressure Diastolic blood pressure Provider Name and Address Organization Details Last Updated DateTime 4 175.26 cm 23 kg/m2 93028.4 1 g 98 % 98 % 66 /min 128 mm[Hg] 56 mm[Hg] 148 mm[Hg] 83 mm[Hg] Marsi Lemon [facility] 4 14:45:23 Date Recorded Body height Heart rate Body temperature Systolic blood pressure Diastolic blood pressure Provider Name and Address Organization Details Last Updated DateTime 03/17/2024 175.26 cm 72 /min 98.7 [degF] 148 mm[Hg] 78 mm[Hg] Alma Sharif [facility] 5 10:00:00 Social History Question Answer Notes LastModified by Organizat ion Details LastModified Time Tobacco Smoking Status Former Smoker [facility] 10 years [facility] 15:47:50 What Is Your Level Of Alcohol Consumption? Heavy 1-3 Beers Per Day [email or web address] Information not available 04/12/2022 Do You Wear A Helmet When Biking? Yes Information not available 08/27/2015 What Is Your Level Of Caffeine Consumption? Moderate 1/day Information not available 08/27/2015 How Much Tobacco Do You Chew? None Information not available 08/27/2015 Are You Currently Employed? Yes Information not available 04/06/2021 What Type Of Diet Are You Following? REGULAR Information not available 08/27/2015 Which Illicit Or Recreational Drugs Have You Used? No [email or web address] Information not available 08/10/2018 Do You Or Have You Ever Used E-cigarettes Or Vape? Never Used Electronic Cigarettes [email or web address] Information not available 03/28/2019 Education 12 Information no t available 08/27/2015 What Is The Highest Grade Or Level Of School You Have Completed Or The Highest Degree You Have Received? 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 No Information not available 04/06/2021 When Did You Quit Smoking? 16+yearssincel astcigarette 1 Ppd For 20 Yrs Information not available 08/27/2015 How Many Days In The Past Year Have You Had A Heavy Drinking Consumption (4+ Female, 5+ Male)? 0 [email or web address] Information not available 03/28/2019 Are There Any Guns Present In Your Home? No [email or web address] Information not available 03/28/2019 Do You Use Insect Repellent Routinely? No Information not available 04/06/2021 Live Alone Or With Others? With Others Information not available 08/27/2015 Marital Status Informatio n not available 08/27/2015 Mosquito Repellent Used Routinely Yes Information not available 08/27/2015 What Was The Date Of Your Most Recent Tobacco Screening? 03/17/2024 Information not available 03/17/2024 How Many Children Do You Have? 0 1 Step Kid Information not available 04/06/2021 What Is Your Current Pack Years? 10packyears [email or web address] Information not available 04/12/2022 What Is Your Relationship Status? Information not available 04/06/2021 Do You Use Your Seat Belt Or Car Seat Routinely? Yes Information not available 04/06/2021 Seat Belts Used Routinely Yes Information not available 08/27/2015 Smoke Alarm In Home Yes Information not available 08/27/2015 Do You Have Smoke And Carbon Monoxide Detectors In Your Home? Yes Information not available 04/06/2021 At What Age Did You Start Smoking Tobacco? 25 Information not available 04/06/2021 Are You Passively Exposed To Smoke? No Information not available 04/06/2021 Do You Or Have You Ever Used Smokeless Tobacco? Never Used Smokeless Tobacco [email or web address] Information not available 03/28/2019 General Stress Level Medium Information not available 08/27/2015 Do You Use Any Illicit Or Recreational Drugs? No Information not available 04/06/2021 Do You Use Sunscreen Routinely? No If Needed, But Rare [email or web address] Information not available 06/27/2023 How Many Years Have You Smoked Tobacco? 25 Information not available 04/06/2021 Do You Or Have You Ever Used Any Other Forms Of Tobacco Or Nicotine? No Information not available 04/06/2021 How Many Days In The Past Year Have You Consumed 5 Or More Drinks? 12 [email or web address] Information not available 04/12/2022 Sex: Male Functional Status Question Answer Note LastModified by Organizat ion Details LastModified Time What is your exercise level? Moderate active job, walking Information not available 04/06/2021 Mental Status None recorded. Family History Relationship Description Onset Age of this Age Resolved Age Notes LastModified by Organization Details LastModified Time Father Malignant tumor of colon [email or web address] Not available 2015 15:38:07 Brother Malignant tumor of prostate [email or web address] Not available 2023 14:22:21 Medical History Condition Response NEUROLOGIC Y Past Encounters Encounter ID Performer Location Encounter Start Date Encounter Closed Date Diagnosis/Indication Diagnosis SNOMED-CT Code Diagnosis ICD10 Code Diagnosis Note [id number] CARI Crespo , [facility], [address] [place] [address] 08/27/2015 15:10:42 08/27/2015 16:36:38 Adult health examination 487096931 Z00.00 see Risk Assessment and Lifestyle Change Counseling section above Counseling 076341494 Z71 .9 Screening for malignant neoplasm of colon 838452513 Z12.11 Referral for a DIRECT booked colonoscop y. This patient is a healthy ASA Class 1 or 2 patient (only mild systemic disease), or a STABLE, well controlled insulin dependent diabetic. They do not have serious cardiac disease ie MS/angiopl asty within 1 year, symptomati c CHF; renal failure with CKD 4 or 5; take Coumadin, Plavix, Aggrenox, etc. Rectal hemorrhage 499018 02 K62.5 [id number] Patricio Castillo MD [facility], [address] [address] 11/17/2015 06:40:22 11/17/2015 13:33:17 [id number] Nilesh Sauceda MD , [facility], [address] [place] [address] 07/16/2016 16:19:07 07/19/2016 12:57:16 Sciatica 03941492 M54.31 will have work with pt Tick bite 41872554 S00.9 6XA reassured discussed goal of getting ticks off in 24 hour [id number] Blanche Taylor NP , [facility], [address] [place] [address] 02/24/2017 15:38:45 02/25/2017 08:08:45 Screening for disorder 647848537 Z11.59 Pain in left knee 474580 8873 46765 M25.562 xray unremarkab le. Check labs in AM (lab is closed) Ibuprofen tid with food -advised re need for antiinflam matory, rest. 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 will finish 4 weeks of treatment and f/u [id number] Nilesh Sauceda MD , [facility], [address] [place] [address] 04/21/2017 16:15:05 04/21/2017 16:49:57 Lyme arthritis 39381788 A69.23 has finished course and seems better will observe and f/u for pe [id number] Nilesh Sauceda MD , [facility], [address] [place] [address] 11/30/2017 15:45:00 12/27/2017 16:05:53 Adult health examination 562738649 Z00.00 see Risk Assessment and Lifestyle Change Counseling section above Counseling 235119486 Z71 .9 Depression screening 171 303988 Z13.89 depression screening tool administer ed, entered into emr, scored and discussed, time greater than 7.5 minutes [id number] Maryuri Perry MD , [facility], [address] [place] [address] 07/08/2018 14:33:34 07/08/2018 15:00:04 Injury of hand 115489125 S69.92XA bruising injury in left hand which is contracted at baseline and without sensationd o not see any fractures on my read of imagingrea ssuranceex pect bruising to resolve in a few weeksno need for other tx, not painfulf/u radiology read [id number] Maryuri Perry MD , [facility], [address] [place] [address] 08/10/2018 09:08:30 08/10/2018 09:31:45 Pain of right shoulder joint [id number] 8107060 M25.511 shoulder strain with a lot of labor and use latelygett ing worse in past few daysnight painstregn th and ROM intactinst r home exercises to startrestn saidssched ule PTf/u as needed [id number] Nilesh Sauceda MD , [facility], [address] [place] [address] 03/28/2019 15:40:10 03/28/2019 16:42:21 Adult health examination 091826421 Z00.00 see Risk Assessment and Lifestyle Change Counseling section above - enc. to schedule an eye exam, due for colonoscop y next year. Encouraged to continue healthy habits and follow-up annually, sooner as needed. Counseling 488604002 Z71 .9 including cardiovasc ular risk reduction counseling Depression screening 171 926913 Z13.89 depression screening tool administer ed, entered into emr, scored and discussed, time greater than 7.5 minutes Screening for alcohol abuse 504087296 Z13.39 Discussed negative effects on body and sleep. Enc. trying to going 10-14 days w/o alcohol. Impaired f asting glycemia 247732130 R73.01 Elevated in the past, will order fasting labs. Sleep cuate georgie disturbance 84492027 G47.9 Reviewed sleep hygiene and how lack of sleep can negatively effect the body Shoulder pain 82035037 M 25.519 C/o right shoulder pain. 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 They will go to [facility] at [facility] for drive-thro ugh PCR test. Aware that results can take up to 48 hrs and they will have to quarantine until then. Acute uppe r respiratory infection 48879191 J06.9 Drink plenty of fluids, such as water, diluted juice, decaffeina vicente tea, or clear broth. Avoid dairy products if they cause you congestion . Use a nasal rinse, such as Netti Pot. Keep room humidified and take warm showers for the steam. Over the counter products for congestion and cough are OK, but will only provide partial relief. If you have high blood pressure, check with your pharmacist for safe alternativ es. Remember that cold symptoms can last as long as 2-3 weeks: stuffiness , cough and sore throat. Mucinex (generic name is guaifenesi n) can help thin mucus and make the cough easier to break up. Please call if your symptoms worsen considerab ly in 3 days, or you have a high fever.REvi ewed red flags, chalino s/t SOB, and when to seek UC/ED. [id number] Ellie Zafar MA , [facility], [address] [place] [address] 04/06/2021 15:33:28 04/09/2021 14:22:03 Adult health examination 791741178 Z00.00 Wellness exam: -Colonosco py 11/17/2015 repeat 5 years (family h/o colon CA); will send referral for repeat-Dec lines COVID and flu vaccines; counseled regarding covid vaccinatio n.-Labs after visit today. Counseling 842315359 Z71 .9 including cardiovasc ular risk reduction counseling Depression screening 171 369360 Z13.31 depression screening tool administer ed, entered into emr, scored and discussed, time greater than 7.5 minutes Screening for alcohol abuse 123345610 Z13.39 Screening for malignant neoplasm of colon 782229399 Z12.11 Referral for a DIRECT booked colonoscop y. This patient is a healthy ASA Class 1 or 2 patient (only mild systemic disease), or a STABLE, well controlled insulin dependent diabetic. They do not have serious cardiac disease ie MS/angiopl asty within 1 year, symptomati c CHF; renal failure with CKD 4 or 5; take Coumadin, Plavix, Aggrenox, etc. [id number] Daniel Carr RN [facility], [facility] [address] [place] [address] 09/03/2021 09:19:12 09/03/2021 12:46:57 [id number] Joceline Lizarraga PA-C , [facility], [address] [place] [address] 04/12/2022 15:35:58 04/14/2022 11:19:04 Adult health examination 847969083 Z00.00 Wellness exam: -Colonosco py 09/03/21: pathology: adenomatou s polyp11/16 repeat 5 years (family h/o colon CA)-Vaccin es reviewed-L abs after visit today please. -Pt and ask about possible supplement al disability qualificat ion with remote left arm injury, his hand is contracted and has very limited use with his arm. Ellie has placed a pt case to social work to help with resources to help pt navigate this. Depression screening 171 Z13.31 depression screening tool administer ed Screening for alcohol abuse 144589988 Z13.39 Alcohol use screening tool administer ed. Drinks at least 3 servings per day and discussed reducing to no more than 1-2 per day. Vaccination not done 002 7672851 9108 Z28.29 Patient declined the vaccine at this time. [id number] Sheridan Stone DO , [facility], [address] [place] [address] 03/10/2023 07:36:24 03/10/2023 08:36:41 Vaccination delayed [id number] 35414 Z28.39 flu & Td Cough 27644083 R05.9 Patient presents with cough.Like ly secondary to: Viral URI triggering bronchospa smDiscusse d supportive measures. Instructed in how to use albuterol MDI with aerochambe rFollow up if not improving or with worsening symptoms. Dyspnea 494678326 R06.00 Lungs clear on exam but ? some bronchospa sm when he is having these sx cough/SOB at home. Will try albuterol with aerochambe r as above [id number] Joceline Lizarraga PA-C , [facility], [address] [place] [address] 06/27/2023 13:33:46 06/27/2023 14:19:29 Adult health examination 565486725 Z00.00 Wellness exam: -Colonosco py 09/03/21: pathology: adenomatou s polyp; has family h/o colon CA with father.-La bs and vaccines reviewed.- We discussed cutting down daily ETOH. Depression screening 171 Z13.31 depression screening tool administer ed Screening for alcohol abuse 490764118 Z13.39 Alcohol use screening tool administer ed Screening for malignant neoplasm of prostate 719910757 Z12.5 Pt wishes to have PSA checked; brother with prostate CA. Vaccination not done 476 0760508 9108 Z28.29 Patient declined the td vaccine at this time. 06/27/23 am Hyperlipidemia 48342977 E78.5 Lipids 04/2022: LDL 153/HDL49/ Tri 175 04/14/22; recheck labs fasting please in next 1-2 weeks. Elevated blood-pressure reading without diagnosis of hypertension 001296202 R03.0 BP elevated times 2 today.Disc ussed reducing ETOH.He does snore, but they do not want to pursue sleep study currently. We discussed the cardiovasc ular risks associated with untreated htn.They will obtain a home cuff and RTO in 2 months please for BP check. [id number] TASIA Perez, [facility], [address] [place] [address] 08/31/2023 14:12:09 08/31/2023 14:51:14 Hyperlipidemia 29808866 E78.5 Repeat lipids 07/05/23: LDL 93/HDL54/T ri 69Lipids 04/2022: LDL 153/HDL49/ Tri 175 04/14/22 Elevated blood-pressure reading without diagnosis of hypertension 936947700 R03.0 BP elevated times 2 today.Disc ussed reducing ETOH.He does snore, but they do not want to pursue sleep study currently. We discussed the cardiovasc ular risks associated with untreated htn.They will obtain a home cuff and RTO in 2 months please for BP check. Essential hypertension 04321676 I10 Discussed reducing ETOH.He does snore, but they do not want to pursue sleep study currently. We discussed the cardiovasc ular risks associated with untreated htn.Home BP readings brought in today are elevated.S tart lisinopri 10 mg QD and f/u in 1 month please. [id number] TASIA Perez, [facility], [address] [place] [address] 09/27/2023 14:32:52 09/28/2023 15:33:30 Essential hypertension 58664586 I10 IMPROVED:D iscussed reducing ETOH.He does snore, but has not wanted to pursue sleep study.Cont inue on Lisinopril 10 mg QD started 1 month ago.Labs 07/05/2023 reviewed; K+ was 5.3 at that time; repeat BMP in 1 month please.F/u in 6 months. Pt may transfer practice back to [facility] in [place] since he lives in [place]. [id number] Jennifer Vital NP , [facility], [address] [place] [address] 03/17/2024 09:14:43 03/17/2024 11:55:39 Abdominal pain 86553089 R10.9 intermitte nt R flank pain x 5 daysafebri leunable to provider urine sample today - will do at home and drop at labnyll get abd US on Tuesdaydisc ussed possible etiology - will push fluidsgive n tramadol for paincall/E R with worsening sxs including worsening pain, fever, vomittingp t and voice understand ing Health Concerns Section Related Observation LastModified by Organization Detai ls LastModified Time None Recorded Concern Status LastModified by Organization Details LastModified Time None Recorded Advance Directives Directive None Recorded Payers Encounter Date Sequence Insurance Name Policy Number Policy Henley Covered Member ID Henley Member ID Guarantor Name 03/10/2023 1 [employer]: [employer]O) [id number] Jesus Boryczka [id number] Jesus Boryczka 06/27/2023 1 [employer] [employer] [id number] Jesus Boryczka [id number] Jesus Boryczka 08/31/2023 1 [employer]: [employer] [id number] Jesus Boryczka [id number] Jesus Boryczka 09/27/2023 1 [employer]: [employer] [id number] Jesus Boryczka [id number] Jesus Boryczka 03/17/2024 1 [employer]: [employer]) [id number] Jeuss Boryczka [id number] Notes Date Note Type Note Provider Name and Address Organization Details Recorded Time 03/10/2023 text/html Patient is here today for sob &cough for a monthwhen outside he feels like it is easier to breathe, cough at nigh & nose feels blocked at night - fresh air helpsHad a URI about 3 weeks ago - was feeling better, now worse againDry cough more at nightNo fever, nose congested, runs some - some blood from noseSimilar sx after covid 2020 Sheridan Stone, DO [address] [place] [address], [place], [address], [facility] 03/10/2023 11:32:14 06/27/2023 text/html Physical Exam/MaleReported bypatient.Janie cruz is here for a Wellness Visit. He describes his health status as fair. Patient's health is worse than last year.Notes:Pt notes feeling tired more frequently due to COVID in Assessment and Lifestyle Change Counseling 50-64Reported bypatient.Coronary Artery Disease Risk Assessment:No Family history of coronary artery disease; No personal history of diabetes; No history of peripheral vascular disease, AAA, or carotid disease; No personal history of coronary artery disease Colon Cancer Risk Assessment:Family history of colon polyps or colon cancer; Patient has higher than average risk for colon cancer Lung Cancer Risk Assessment:Has used cigarettes;Has used cigarettes less than 30 pack years;Former smoker quit within last 15 years; No symptoms of Lung Cancer; Patient has higher than average risk for lung cancer Fracture Risk Assessment:No unexplained fracture Cognitive/Behaviora l Risk Assessment:No personal history of mental illness; No family history of mental illness Safety Risk Assessment:No evidence of abuse/neglect Diet:Counseled about appropriate portion size; Counseled about eating a diet low in trans and saturated fats and high in fiber, fruits and vegetables; Counseled about appropriate calcium intake and good dietary sources of calcium.; Counseled about the importance of maintaining a positive calcium balance and taking 1000 iu Vitamin D daily.; Counseled about decreasing carbohydrates; Counseled about decreasing salt in diet; Discussed the value of a Mediterranean diet , and eating more fruits and vegetables Exercise counseling:Discusse d the importance of daily physical activity; Discussed the importance of weight bearing exercise Safety:Counseled about protecting skin from the sun and lowering the risk of skin cancer; Counseled about avoiding excessive and unsafe alcohol intake; Counseled about use of helmets for high velocity activiities; Counseled about use of seat belts Here for annual wellness, comes in with his .Generally in his usual state of health.BP elevated today X2.We spoke in [place] during the visit today. 04/12/22 wellnessPt here for wellness visit accompanied by his .We spoke [place] during the visit as this is pt's primary language.Overall doing well.Takes no medications.Pt would like to discuss lesions on bilateral plantar feet, one on each. Joceline Lizarraga PA-C [address] [place], [address], [facility] 06/27/2023 14:27:03 08/31/2023 text/html 08/31/23- Pt here today for a follow up appt for BP check.Here today for a BP check and brings in home cuff; almost all home visit are elevated 150s-160s/90 and one reading 180/100.No CP, SOB, dizziness, headaches. Joceline Lizarraga PA-C [address] [place], [address], [facility] 08/31/2023 14:56:34 09/27/2023 text/html HTN f/u: Started on lisinopril 10 mg QD last visit.Home BP readings are MUCH improved in the 130s on average systolic now. Pt does bring in BP cuff.No CP, SOB, dizziness, h/a. 08/31/23- Pt here today for a follow up appt for BP check.Here today for a BP check and brings in home cuff; almost all home visit are elevated 150s-160s/90 and one reading 180/100.No CP, SOB, dizziness, headaches. 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 Denies dysuriapain 1-2 hrs mostly at night- sometimes during the dayaffecting sleepno hx of kidney stonesbowels regularno feverlast had pain last nightworks in school - physical work- nothing newtook some herbal pain Jennifer Vital NP [address] [place] [address], [place], [address], [facility] 03/17/2024 11:54:58
[2024-05-10 02:40] VITALS: BP 120/73; PULSE 67; RESP 16; TEMP 36.8; O2SAT 96
[2024-05-10 02:55] VITALS: BP 120/73; PULSE 67; RESP 16; TEMP 36.8; O2SAT 96
== END 2024-05-10 02:40 | disposition home or self-care (01) ==
PROVIDERS: Physician Assistant Medical; Emergency Provider Emergency Medicine Emergency Medical Services
DX: I10 Essential (primary) hypertension (principal); Z79.899 Other long term (current) drug therapy; Z03.818 Encounter for observation for suspected exposure to other biological agents ruled out
CPT/HCPCS: 0241U; 36415; 70450; 80048; 80076; 81003; 84484; 85025; 93005; 99284

== ENCOUNTER → 2024-05-09 20:45 | Outpatient (BNV) | payer BC, SELFPAY | PROVIDERS: Emergency Provider Emergency Medicine Emergency Medical Services; Visit Provider Internal Medicine | DX: R03.0 Elevated blood-pressure reading, without diagnosis of hypertension (principal) | CPT/HCPCS: 93010 ==

== ENCOUNTER → 2024-05-09 20:45 | Outpatient (BNV) | payer SELFPAY | PROVIDERS: Visit Provider Radiology Neuroradiology | DX: I10 Essential (primary) hypertension (principal); R51.9 Headache, unspecified | CPT/HCPCS: 70450 ==